=== PATIENT | male | born 1960 | race Caucasian/White ===

== ENCOUNTER 2016-03-03 23:12 | Inpatient (IN) | payer OTHER ==
[~2016-03-03] VITALS: Ht 167.6 cm; Wt 81.6 kg
[2016-03-03 23:16] VITALS: BP 88/53; PULSE 59; RESP 21; TEMP 97.7
[2016-03-03] MEDS ORDERED: SODIUM CHLOR 0.9% 250 ML INJ 250 ML IV ONE (23:30)
[2016-03-03] MEDS ORDERED: ONDANSETRON HCL 4 MG/2 ML VIAL ONE (23:38)
[2016-03-03 23:49] VITALS: BP 134/74; PULSE 84; RESP 20; O2SAT 98
[2016-03-04] VITALS (27 sets, daily range): BP systolic 89–158; BP diastolic 55–76; PULSE 52–118; RESP 14–19; TEMP 97.4–101; O2SAT 92–100
[2016-03-04 00:22] LABS: BICARBONATE 18.7 MEQ/L (21.0-32.0)
[2016-03-04] MEDS ORDERED: IOHEXOL 350 MG/ML 10 ML VIAL (for RAD DIAG) IV ONE (00:28)
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
[2016-03-04 00:47] LABS: POTASSIUM 2.9 MEQ/L (3.5-5.1)
--- NOTE | 2016-03-04 00:53 | RADRPT ---
EXAM DATE/TIME: 03/03/2016 23:49 [facility] COMPARISON: No previous studies available for comparison. INDICATIONS : Chest and abdominal pain MEDICAL HISTORY : Unknown SURGICAL HISTORY : Unknown ENCOUNTER: Initial ACUITY: 1 day PAIN SCORE: Non-responsive. LOCATION: Bilateral chest FINDINGS: A single view of the chest demonstrates the lungs to be symmetrically aerated without evidence of mas s, infiltrate or effusion. The cardiomediastinal contours are unremarkable. Osseous structures are intact. CONCLUSION: No acute disease. Ruben Levy MD on March 04, 2016 at 0:52 Board Certified Radiologist. This report was verified electronically.
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
[2016-03-04] MEDS ORDERED: POTASSIUM CHLORIDE 20 MEQ CONTROLLED RELEASE TAB PO ONE (01:00)
[2016-03-04] MEDS ORDERED: POTASSIUM CHLOR 20 MEQ PREMIX 100 ML IV ONE (01:00)
[2016-03-04] MEDS ORDERED: ETOMIDATE 20 MG/10 ML VIAL ONE (01:19)
[2016-03-04] MEDS ORDERED: SUCCINYLCHOLINE CHLORIDE 200 MG/10 ML VIAL ONE (01:19)
[2016-03-04 01:33] LABS: CALCIUM-PROTEIN CORRECTED 7.9 MG/DL (8.5-10.1)
[2016-03-04] MEDS ORDERED: ceFAZolin 2 GM PREMIX 50 ML ONE (01:54)
[2016-03-04 02:17] LABS: BLOOD GAS CARBOXYHEMOGLOBIN 1.5 % (0-4); BLOOD GAS HCO3 20 mmol/L (22-26); BLOOD GAS METHEMOGLOBIN 1.2 % (0-2); BLOOD GAS O2 HGB SATURATION 96 % (90-100); BLOOD GAS OXYGEN CONTENT 14.7 Vol % (12.0-20.0); BLOOD GAS PCO2 43 mmHg (38-42); BLOOD GAS PO2 163 mmHg (61-120); BLOOD GAS TOTAL HGB 10.6 G/DL (12.0-16.0); CRITICAL VALUE YES; STAT YES; TEMP CORR TO 98.6
[2016-03-04 02:45] LABS: AUTOMATED NEUTROPHIL # 7.3 TH/MM3 (1.8-7.7); BASOPHIL % 0.4 % (0.0-2.0); HEMATOCRIT 23.9 % (39.0-51.0); HEMO FLAGS DIFF FINAL; LYMPH % 4.8 % (9.0-44.0); LYMPHOCYTE # 0.4 TH/MM3 (1.0-4.8); MEAN CELL VOLUME 94.3 FL (80.0-100.0); MEAN CORPUSCULAR HEMOGLOBIN 32.9 PG (27.0-34.0); MEAN CORPUSCULAR HGB CONC 34.9 % (32.0-36.0); MONO % 7.3 % (0.0-8.0); NEUT % 87.5 % (16.0-70.0); PLATELET COUNT 129 TH/MM3 (150-450); RED BLOOD COUNT 2.53 MIL/MM3 (4.50-5.90); RED CELL DISTRIBUTION WIDTH 13.3 % (11.6-17.2); WHITE BLOOD COUNT 8.3 TH/MM3 (4.0-11.0)
[2016-03-04 02:49] LABS: BLOOD GAS BASE EXCESS -5.4 mmol/L (-2-2); BLOOD GAS CARBOXYHEMOGLOBIN 1.9 % (0-4); BLOOD GAS HCO3 20 mmol/L (22-26); BLOOD GAS METHEMOGLOBIN 1.3 % (0-2); BLOOD GAS O2 HGB SATURATION 96 % (90-100); BLOOD GAS OXYGEN CONTENT 11.9 Vol % (12.0-20.0); BLOOD GAS PCO2 39 mmHg (38-42); BLOOD GAS PO2 146 mmHg (61-120); BLOOD GAS TOTAL HGB 8.6 G/DL (12.0-16.0); CRITICAL VALUE NO; STAT YES; TEMP CORR TO 98.6
[2016-03-04] MEDS: SODIUM CHLOR 0.9% 1000 ML INJ 1,000 ML IV SCH ×2 (03:32→13:32)
[2016-03-04] MEDS ORDERED: MAGNESIUM OXIDE 400 MG TAB PO PRN ×2 (03:45→05:30)
[2016-03-04] MEDS ORDERED: MISCELLANEOUS NURSING INFORMATION XX SCH (03:45)
[2016-03-04] MEDS ORDERED: PROPOFOL 1000 MG/100 ML INJ 100 ML IV SCH ×3 (03:45→07:15)
[2016-03-04] MEDS ORDERED: ONDANSETRON HCL 4 MG/2 ML VIAL IV PRN (03:45)
[2016-03-04] MEDS ORDERED: SODIUM PHOSPHATE INJ 30 MMOL in SODIUM CHLOR 0.9% 250 ML INJ 240 ML IV PRN (03:45)
[2016-03-04] MEDS ORDERED: POTASSIUM CHLOR 40 MEQ PREMIX 100 ML IV PRN ×4 (03:45→05:30)
[2016-03-04] MEDS ORDERED: POTASSIUM PHOSPHATE MONOBASIC 500 MG TAB PO PRN ×2 (03:45→05:30)
[2016-03-04] MEDS ORDERED: POTASSIUM CL 40 MEQ/30 ML LIQ UDC PO/TUBE PRN ×4 (03:45→05:30)
[2016-03-04] MEDS ORDERED: SODIUM CHLORIDE 0.9% FLUSH 5 ML FLUSH IV FLUSH PRN (03:45)
[2016-03-04] MEDS ORDERED: POTASSIUM PHOSPHATE MONOBASIC 500 MG TAB PO/TUBE PRN ×2 (03:45→05:30)
[2016-03-04] MEDS ORDERED: POTASSIUM CHLOR 20 MEQ PREMIX 100 ML IV PRN ×4 (03:45→05:30)
[2016-03-04] MEDS ORDERED: POTASSIUM PHOSPHATE INJ 30 MMOL in SODIUM CHLOR 0.9% 250 ML INJ 250 ML IV PRN ×2 (03:45→05:30)
[2016-03-04] MEDS ORDERED: CHLORHEXIDINE GLUCONATE 2 % 1 PACK (2 CLOTHS) TOP PRN (03:45)
[2016-03-04] MEDS ORDERED: MAGNESIUM SULFATE INJ 4 GM in SODIUM CHLORIDE 0.9% INJ 92 ML IV PRN ×2 (03:45→05:30)
[2016-03-04] MEDS ORDERED: MAGNESIUM SULFATE INJ 2 GM in SODIUM CHLORIDE 0.9% INJ 96 ML IV PRN ×2 (03:45→05:30)
[2016-03-04] MEDS ORDERED: MIDAZOLAM HCL 2 MG/2 ML VIAL ONE ×2 (03:55)
[2016-03-04] MEDS: CHLORHEXIDINE GLUCONATE 2 % 1 PACK (2 CLOTHS) TOP SCH (04:00)
[2016-03-04] MEDS: fentaNYL DRIP 250 ML IV SCH ×3 (04:14→20:58)
[2016-03-04 04:15] LABS: BLOOD GAS BASE EXCESS -1.4 mmol/L (-2-2); BLOOD GAS CARBOXYHEMOGLOBIN 1.4 % (0-4); BLOOD GAS HCO3 24 mmol/L (22-26); BLOOD GAS O2 HGB SATURATION 94 % (90-100); BLOOD GAS OXYGEN CONTENT 13.1 Vol % (12.0-20.0); BLOOD GAS PCO2 45 mmHg (38-42); BLOOD GAS PO2 90 mmHg (61-120); BLOOD GAS TOTAL HGB 9.8 G/DL (12.0-16.0); CRITICAL VALUE NO; TEMP CORR TO 98.6
[2016-03-04 04:16] LABS: DRAW SITE ALINE
[2016-03-04 04:17] LABS: STAT YES
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
--- NOTE | 2016-03-04 05:39 | RADRPT ---
EXAM DATE/TIME: 03/04/2016 04:26 [facility] COMPARISON: CHEST SINGLE AP, March 03, 2016, 23:49. INDICATIONS : Post intubation. MEDICAL HISTORY : None. SURGICAL HISTORY : None. ENCOUNTER: Initial ACUITY: 1 day PAIN SCORE: Non-responsive. LOCATION: Bilateral chest FINDINGS: A single view of the chest demonstrates endotracheal tube with tip 2.5 cm above the maria guadalupe. Nasogastr ic tube with tip likely in stomach. Minimal patchy densities in the right lower lobe with slight elev ation right hemidiaphragm. The cardiomediastinal contours are unremarkable. Osseous structures are i ntact. CONCLUSION: 1. Minimal patchy density right lower lobe, likely atelectasis. 2. Endotracheal tube 2.5 cm above the maria guadalupe. Ruben Levy MD on March 04, 2016 at 5:36 Board Certified Radiologist. This report was verified electronically.
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
[2016-03-04] MEDS ORDERED: LORazepam 2 MG/ML VIAL ONE (06:53)
[2016-03-04] MEDS ORDERED: LORazepam 2 MG/ML VIAL IM PRN (07:15)
[2016-03-04] MEDS ORDERED: MIDAZOLAM HCL 5 MG/ML VIAL (1 ML) IV ONE (07:30)
[2016-03-04] MEDS: METOPROLOL TARTRATE 50 MG TAB PO SCH ×2 (07:30→21:41)
[2016-03-04] MEDS ORDERED: CHLORHEXIDINE 0.12% (ORAL KIT) 15 ML CUP MT SCH (08:00)
[2016-03-04] MEDS: CHLORHEXIDINE 0.12% (ORAL KIT) 15 ML CUP MT SCH ×2 (08:00→20:59)
[2016-03-04] MEDS: MIDAZOLAM 100 MG/ML INJ 100 ML IV SCH ×2 (08:04→20:58)
[2016-03-04] MEDS: SODIUM CHLORIDE 0.9% FLUSH 5 ML FLUSH IV FLUSH SCH ×2 (09:00→20:59)
[2016-03-04 09:59] LABS: HEMATOCRIT 27.9 % (39.0-51.0); MEAN CORPUSCULAR HEMOGLOBIN 30.8 PG (27.0-34.0); MEAN CORPUSCULAR HGB CONC 34.9 % (32.0-36.0); PLATELET COUNT 116 TH/MM3 (150-450); RED BLOOD COUNT 3.17 MIL/MM3 (4.50-5.90); RED CELL DISTRIBUTION WIDTH 16.3 % (11.6-17.2); REVIEW FLAG FINAL; WHITE BLOOD COUNT 3.8 TH/MM3 (4.0-11.0)
[2016-03-04 10:05] LABS: APTT (PATIENT) 26.8 SEC (24.3-30.1); INTERNATIONAL NORMALIZED RATIO 1.1 RATIO
[2016-03-04] MEDS: chlordiazePOXIDE 25 MG CAP PO SCH ×2 (10:13→15:47)
[2016-03-04] MEDS: FAMOTIDINE 20 MG/2 ML VIAL IV PUSH SCH ×2 (10:13→20:58)
[2016-03-04] MEDS: THIAMINE INJ 100 MG in SODIUM CHLORIDE 0.9% INJ 100 ML IV SCH (10:13)
[2016-03-04 10:20] LABS: BICARBONATE 28.1 MEQ/L (21.0-32.0); MAGNESIUM 2.2 MG/DL (1.5-2.5); POTASSIUM 3.4 MEQ/L (3.5-5.1)
[2016-03-04 10:35] LABS: CALCIUM-PROTEIN CORRECTED 7.9 MG/DL (8.5-10.1)
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
[2016-03-04] MEDS ORDERED: PHENYLEPH/NS 1000 MCG/10 ML SYR IV ONE (15:32)
[2016-03-04] MEDS ORDERED: NORMOSOL R INJ 4,000 ML IV ONE (15:32)
[2016-03-04] MEDS ORDERED: PROPOFOL 200 MG/20 ML AMP IV ONE (15:32)
[2016-03-04] MEDS ORDERED: ONDANSETRON HCL 4 MG/2 ML VIAL IV PUSH ONE (15:32)
[2016-03-04 17:48] LABS: BLOOD GAS BASE EXCESS 2.1 mmol/L (-2-2); BLOOD GAS CARBOXYHEMOGLOBIN 1.4 % (0-4); BLOOD GAS HCO3 26 mmol/L (22-26); BLOOD GAS METHEMOGLOBIN 0.8 % (0-2); BLOOD GAS O2 HGB SATURATION 96 % (90-100); BLOOD GAS OXYGEN CONTENT 14.2 Vol % (12.0-20.0); BLOOD GAS PCO2 35 mmHg (38-42); BLOOD GAS PO2 98 mmHg (61-120); BLOOD GAS TOTAL HGB 10.4 G/DL (12.0-16.0); CRITICAL VALUE NO; OXYGEN DEVICE VENTILATOR; TEMP CORR TO 98.6
[2016-03-04 17:49] LABS: DRAW SITE ART LINE; FIO2 40 %; STAT NO; VENT SETTINGS PRVC/AC/VT600/R14/P5
[2016-03-04] MEDS: LABETALOL HCL 100 MG/20 ML VIAL IV PUSH PRN (21:56)
--- NOTE | 2016-03-04 22:31 | EKG ---
Date Performed: 03/03/2016 Time Performed: 23:41:15 PTAGE: 56 years EKG: Sinus rhythm NORMAL ECG NO PREVIOUS TRACING DOCTOR: Martín Flores Interpretating Date/Time 03/04/2016 22:28:00
[2016-03-05] VITALS (14 sets, daily range): BP systolic 123–157; BP diastolic 64–88; PULSE 72–90; RESP 10–28; TEMP 78–100.2; O2SAT 93–96
[2016-03-05] MEDS: SODIUM CHLOR 0.9% 1000 ML INJ 1,000 ML IV SCH ×3 (01:37→20:26)
[2016-03-05] MEDS ORDERED: RESP: ALBUTEROL 2.5 MG/IPRATROPIUM 0.5 MG NEB (SCH) ONE (03:45)
[2016-03-05] MEDS: CHLORHEXIDINE GLUCONATE 2 % 1 PACK (2 CLOTHS) TOP SCH (04:00)
[2016-03-05] MEDS ORDERED: RESP: ALBUTEROL 2.5 MG/IPRATROPIUM 0.5 MG NEB (PRN) NEB (04:00)
--- NOTE | 2016-03-05 05:02 | RADRPT ---
EXAM DATE/TIME: 03/05/2016 03:58 [facility] COMPARISON: CHEST SINGLE AP, March 04, 2016, 4:26. INDICATIONS : Shortness of breath, possible pulmonary disease. MEDICAL HISTORY : None. SURGICAL HISTORY : None. ENCOUNTER: Subsequent ACUITY: 3 days PAIN SCORE: Non-responsive. LOCATION: Bilateral chest FINDINGS: A single view of the chest demonstrates increasing elevation right hemidiaphragm. Right basilar densi ty. Left lung clear. Nasogastric tube with tip in stomach. The cardiomediastinal contours are unremar kable. Osseous structures are intact. CONCLUSION: 1. Increasing atelectasis with increasing elevation right hemidiaphragm and volume loss. 2. Left lung remains clear. Ruben Levy MD on March 05, 2016 at 4:56 Board Certified Radiologist. This report was verified electronically.
[2016-03-05 05:14] LABS: BLOOD GAS BASE EXCESS 0.4 mmol/L (-2-2); BLOOD GAS CARBOXYHEMOGLOBIN 1.5 % (0-4); BLOOD GAS HCO3 25 mmol/L (22-26); BLOOD GAS METHEMOGLOBIN 0.8 % (0-2); BLOOD GAS O2 HGB SATURATION 91 % (90-100); BLOOD GAS OXYGEN CONTENT 13.3 Vol % (12.0-20.0); BLOOD GAS PCO2 46 mmHg (38-42); BLOOD GAS PO2 64 mmHg (61-120); BLOOD GAS TOTAL HGB 10.5 G/DL (12.0-16.0); CRITICAL VALUE NO; DRAW SITE ART LINE; FIO2 50 %; LITER FLOW 6 L/M; OXYGEN DEVICE Venti Mask; TEMP CORR TO 98.6
[2016-03-05 05:15] LABS: STAT NO
[2016-03-05 06:03] LABS: AUTOMATED NEUTROPHIL # 7.9 TH/MM3 (1.8-7.7); BASOPHIL # 0.1 TH/MM3 (0-0.2); BASOPHIL % 0.5 % (0.0-2.0); EOSINOPHIL # 0.1 TH/MM3 (0-0.4); EOSINOPHIL % 0.6 % (0.0-4.0); HEMATOCRIT 31.1 % (39.0-51.0); HEMO FLAGS DIFF FINAL; LYMPH % 15.8 % (9.0-44.0); LYMPHOCYTE # 1.7 TH/MM3 (1.0-4.8); MEAN CELL VOLUME 89.7 FL (80.0-100.0); MEAN CORPUSCULAR HGB CONC 34.6 % (32.0-36.0); MONO % 10.7 % (0.0-8.0); NEUT % 72.4 % (16.0-70.0); PLATELET COUNT 150 TH/MM3 (150-450); RED BLOOD COUNT 3.47 MIL/MM3 (4.50-5.90); RED CELL DISTRIBUTION WIDTH 16.7 % (11.6-17.2)
[2016-03-05 06:04] LABS: PROTHROMBIN TIME - PATIENT 11.4 SEC (9.8-11.6)
[2016-03-05 06:20] LABS: MAGNESIUM 2.3 MG/DL (1.5-2.5); POTASSIUM 3.8 MEQ/L (3.5-5.1)
[2016-03-05 06:35] LABS: CALCIUM-PROTEIN CORRECTED 8.2 MG/DL (8.5-10.1)
[2016-03-05] MEDS: CHLORHEXIDINE 0.12% (ORAL KIT) 15 ML CUP MT SCH ×2 (08:00→20:21)
[2016-03-05] MEDS: chlordiazePOXIDE 25 MG CAP PO SCH ×4 (08:00→23:22)
[2016-03-05] MEDS: DOCUSATE SODIUM 100 MG CAP PO SCH ×2 (08:06→20:19)
[2016-03-05] MEDS: FAMOTIDINE 20 MG/2 ML VIAL IV PUSH SCH ×2 (08:06→20:20)
[2016-03-05] MEDS: SODIUM CHLORIDE 0.9% FLUSH 5 ML FLUSH IV FLUSH SCH ×2 (08:06→20:20)
[2016-03-05] MEDS: METOPROLOL TARTRATE 50 MG TAB PO SCH ×2 (08:06→20:19)
[2016-03-05] MEDS: THIAMINE INJ 100 MG in SODIUM CHLORIDE 0.9% INJ 100 ML IV SCH (08:06)
[2016-03-05] MEDS: RESP: ALBUTEROL 2.5 MG/IPRATROPIUM 0.5 MG NEB (SCH) NEB ×3 (09:44→20:33)
[2016-03-05] MEDS: SODIUM PHOSPHATE INJ 30 MMOL in SODIUM CHLOR 0.9% 250 ML INJ 240 ML IV PRN ×2 (09:45→22:13)
[2016-03-05] MEDS: ENOXAPARIN SODIUM 40 MG/0.4 ML SYRINGE SQ SCH (10:03)
[2016-03-05] MEDS: HYDROmorphone HCL PF 1 MG/ML VIAL IV PUSH PRN (13:53)
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
[2016-03-06] VITALS (19 sets, daily range): BP systolic 109–171; BP diastolic 52–87; PULSE 61–89; RESP 12–28; TEMP 97.9–99.2; O2SAT 93–100
[2016-03-06] MEDS: CHLORHEXIDINE GLUCONATE 2 % 1 PACK (2 CLOTHS) TOP SCH (03:05)
[2016-03-06] MEDS: RESP: ALBUTEROL 2.5 MG/IPRATROPIUM 0.5 MG NEB (SCH) NEB ×4 (04:08→21:18)
[2016-03-06] MEDS: SODIUM CHLOR 0.9% 1000 ML INJ 1,000 ML IV SCH ×2 (05:32→08:45)
[2016-03-06 05:45] LABS: HEMATOCRIT 28.5 % (39.0-51.0); MEAN CELL VOLUME 90.1 FL (80.0-100.0); MEAN CORPUSCULAR HEMOGLOBIN 30.8 PG (27.0-34.0); MEAN CORPUSCULAR HGB CONC 34.2 % (32.0-36.0); PLATELET COUNT 169 TH/MM3 (150-450); RED BLOOD COUNT 3.17 MIL/MM3 (4.50-5.90); REVIEW FLAG FINAL
[2016-03-06 06:11] LABS: BICARBONATE 26.8 MEQ/L (21.0-32.0); MAGNESIUM 2.1 MG/DL (1.5-2.5); POTASSIUM 3.7 MEQ/L (3.5-5.1)
--- NOTE | 2016-03-06 06:33 | RADRPT ---
EXAM DATE/TIME: 03/06/2016 05:22 [facility] COMPARISON: CT ABDOMEN & PELVIS W CONTRAST, March 04, 2016, 0:10. CHEST SINGLE AP, March 05, 2016, 3:58. INDICATIONS : Shortness of breath. MEDICAL HISTORY : None. SURGICAL HISTORY : None. ENCOUNTER: Subsequent ACUITY: 4 - 6 days PAIN SCORE: Non-responsive. LOCATION: Bilateral chest FINDINGS: The cardiac silhouette is enlarged in transverse diameter. There is right lower lobe atelectasis vers us pneumonia. The findings have worsened when compared with the prior examination. The left lung is f ree of acute parenchymal opacity. CONCLUSION: 1. Cardiomegaly. 2. Right lower lobe atelectasis versus pneumonia. The findings have worsened when compared with the p rior examination. Wu Felix MD on March 06, 2016 at 6:30 Board Certified Radiologist. This report was verified electronically.
[2016-03-06] MEDS: SODIUM CHLORIDE 0.9% FLUSH 5 ML FLUSH IV FLUSH SCH ×2 (07:32→20:20)
[2016-03-06] MEDS: chlordiazePOXIDE 25 MG CAP PO SCH ×2 (08:44→16:24)
[2016-03-06] MEDS: CHLORHEXIDINE 0.12% (ORAL KIT) 15 ML CUP MT SCH ×2 (08:44→20:20)
[2016-03-06] MEDS: DOCUSATE SODIUM 100 MG CAP PO SCH ×2 (08:44→20:20)
[2016-03-06] MEDS: METOPROLOL TARTRATE 50 MG TAB PO SCH ×2 (08:44→21:00)
[2016-03-06] MEDS: ENOXAPARIN SODIUM 40 MG/0.4 ML SYRINGE SQ SCH (08:45)
[2016-03-06] MEDS: FAMOTIDINE 20 MG/2 ML VIAL IV PUSH SCH ×2 (08:45→20:20)
[2016-03-06] MEDS: THIAMINE INJ 100 MG in SODIUM CHLORIDE 0.9% INJ 100 ML IV SCH (08:54)
[2016-03-06] MEDS ORDERED: PNEUMOCOCCAL POLYVALENT INJ 25 MCG/0.5 ML SYR IM ONE (09:00)
[2016-03-06] MEDS ORDERED: HAEMOPH B POLYSACCH CONJ VACCINE 0.5 ML VIAL IM ONE (09:00)
[2016-03-06] MEDS ORDERED: MENINGOCOCCAL CONJUGATE VACCINE 0.5 ML VIAL IM ONE (09:00)
[2016-03-06] MEDS ORDERED: LACTATED RINGER'S 1000 ML INJ 2,000 ML IV ONE (09:29)
[2016-03-06] MEDS ORDERED: ePHEDrine/NS 50 MG/5 ML SYR IV ONE (09:29)
[2016-03-06] MEDS ORDERED: PHENYLEPH/NS 1000 MCG/10 ML SYR IV ONE (09:29)
[2016-03-06] MEDS ORDERED: PROPOFOL 200 MG/20 ML AMP IV ONE (09:29)
[2016-03-06] MEDS ORDERED: FUROSEMIDE 40 MG/4 ML VIAL IV PUSH ONE (10:00)
[2016-03-06] MEDS ORDERED: EPINEPHrine HCL (1:10,000) 1 MG/10 ML SYRINGE ONE (10:35)
[2016-03-06] MEDS ORDERED: LIDOCAINE HCL 2% 100 MG/5 ML SYRINGE ONE (10:35)
[2016-03-06] MEDS ORDERED: ATROPINE SULFATE 1 MG/10 ML SYRINGE ONE (10:35)
--- NOTE | 2016-03-06 11:15 | RADRPT ---
EXAM DATE/TIME: 03/06/2016 10:48 [facility] COMPARISON: CHEST SINGLE AP, March 05, 2016, 3:58. CHEST SINGLE AP, March 04, 2016, 4:26. CHEST SINGLE AP, March 06, 2016, 5:22. INDICATIONS : Short of breath. RADIATION DOSE: 6.36 CTDIvol (mGy) MEDICAL HISTORY : None SURGICAL HISTORY : Splenectomy. ENCOUNTER: Initial ACUITY: 1 day PAIN SCALE: 4/10 LOCATION: chest TECHNIQUE: Volumetric scanning of the chest was performed. Using automated exposure control and adjustment of t he mA and/or kV according to patient size, radiation dose was kept as low as reasonably achievable to obtain optimal diagnostic quality images. FINDINGS: LUNGS: There is significant volume loss within the right hemithorax with elevation of the right hemidiaphrag m and complete collapse of the right upper, middle and lower lung. There is air identified within the trachea and bronchi. No obstructing lesion is identified. There is also a small right-sided pleural effusion noted. The left lung demonstrate a small pleural effusion and adjacent compressive atelectas is of the left lower lung. Patchy airspace consolidation is seen within the anterior aspect of the le ft upper lung and within the left apex. PLEURAE: Bilateral small pleural effusions. MEDIASTINUM: The heart and great vessels demonstrate no acute abnormality. There is no mediastinal or hilar lymph adenopathy. Gastric tube is identified within the stomach. AXILLAE: Within normal limits. No lymphadenopathy. MUSCULOSKELETAL: Within normal limits for patient age. MISCELLANEOUS: The patient is status post splenectomy with a large heterogeneous fluid collection identified within the left upper quadrant. There is a focal area of increased fluid density within the lower fluid chandler ection immediately contiguous with the adjacent splenic vein. This is concerning for acute hemorrhage . CONCLUSION: 1. Fluid collection identified within the splenic with focal area of high density fluid immediately c ontiguous with the splenic vein concerning for acute hemorrhage. The referring physician is being con tacted to relay these results. 2. Significant volume loss identified within the right hemithorax with complete collapse of the right upper, middle and lower lobes. 3. Patchy areas of airspace consolidation within the left lung apex and anterior aspect of the left l frankie concerning for infection. Small bilateral pleural effusions. Maribeth Anders MD on March 06, 2016 at 11:02 Board Certified Radiologist. This report was verified electronically.
[2016-03-06 12:06] LABS: HEMATOCRIT 30.7 % (39.0-51.0); REVIEW FLAG FINAL
[2016-03-06] MEDS: SODIUM PHOSPHATE INJ 30 MMOL in SODIUM CHLOR 0.9% 250 ML INJ 240 ML IV PRN (12:07)
[2016-03-06] MEDS: LABETALOL HCL 100 MG/20 ML VIAL IV PUSH PRN (12:18)
[2016-03-06 13:27] LABS: BLOOD GAS BASE EXCESS 2.7 mmol/L (-2-2); BLOOD GAS CARBOXYHEMOGLOBIN 1.9 % (0-4); BLOOD GAS HCO3 27 mmol/L (22-26); BLOOD GAS METHEMOGLOBIN 1.1 % (0-2); BLOOD GAS O2 HGB SATURATION 97 % (90-100); BLOOD GAS OXYGEN CONTENT 20.7 Vol % (12.0-20.0); BLOOD GAS PCO2 43 mmHg (38-42); BLOOD GAS PO2 177 mmHg (61-120); CRITICAL VALUE NO; OXYGEN DEVICE OR; STAT YES; TEMP CORR TO 98.6
[2016-03-06] MEDS ORDERED: PROPOFOL 1000 MG/100 ML INJ 100 ML ONE (13:57)
[2016-03-06] MEDS ORDERED: fentaNYL CITRATE 250 MCG/5 ML AMP ONE (14:07)
[2016-03-06] MEDS ORDERED: *morphine SULFATE 8 MG/ML PERIprocedure ONLY ONE ×2 (14:17→14:24)
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
--- NOTE | 2016-03-06 16:19 | RADRPT ---
EXAM DATE/TIME: 03/06/2016 15:16 [facility] COMPARISON: CT THORAX W/O CONTRAST, March 06, 2016, 10:48. INDICATIONS : Post Intubation/Bronch. MEDICAL HISTORY : None. SURGICAL HISTORY : Splenectomy. ENCOUNTER: Initial ACUITY: 1 day PAIN SCORE: Non-responsive. LOCATION: Bilateral chest FINDINGS: Single portable view of the thorax is performed. There has been interval intubation with improved aer ation of the right hemithorax. There is persistent atelectasis seen within the right lower lung and a djacent to the right middle lobe. The left hemithorax is clear. NG tube identified with the proximal port below level of the diaphragm. There is a new left-sided jacky inage catheter rejecting over the splenic fossa. CONCLUSION: Status post drainage of a fluid collection within the splenic fossa. Intubation with improved aeration of the right hemithorax. Maribeth Anders MD on March 06, 2016 at 16:16 Board Certified Radiologist. This report was verified electronically.
[2016-03-06] MEDS: PROPOFOL 1000 MG/100 ML INJ 100 ML IV SCH (16:24)
[2016-03-06] MEDS: PIPERACIL-TAZO 4.5 GM PREMIX 100 ML IV SCH (16:24)
[2016-03-07] VITALS (19 sets, daily range): BP systolic 124–164; BP diastolic 63–90; PULSE 74–83; RESP 12–26; TEMP 98.4–99.6; O2SAT 92–100
[2016-03-07] MEDS: PIPERACIL-TAZO 4.5 GM PREMIX 100 ML IV SCH ×2 (00:20→08:17)
[2016-03-07] MEDS: PROPOFOL 1000 MG/100 ML INJ 100 ML IV SCH ×2 (02:15→08:17)
[2016-03-07 04:24] LABS: HEMATOCRIT 29.4 % (39.0-51.0); MEAN CELL VOLUME 89.7 FL (80.0-100.0); MEAN CORPUSCULAR HEMOGLOBIN 30.8 PG (27.0-34.0); MEAN CORPUSCULAR HGB CONC 34.3 % (32.0-36.0); PLATELET COUNT 219 TH/MM3 (150-450); RED BLOOD COUNT 3.28 MIL/MM3 (4.50-5.90); REVIEW FLAG FINAL; WHITE BLOOD COUNT 9.5 TH/MM3 (4.0-11.0)
[2016-03-07] MEDS: RESP: ALBUTEROL 2.5 MG/IPRATROPIUM 0.5 MG NEB (SCH) NEB ×4 (04:24→21:16)
[2016-03-07 04:53] LABS: BICARBONATE 30.2 MEQ/L (21.0-32.0); MAGNESIUM 2.1 MG/DL (1.5-2.5); POTASSIUM 3.5 MEQ/L (3.5-5.1)
[2016-03-07 05:04] LABS: BLOOD GAS BASE EXCESS -0.1 mmol/L (-2-2); BLOOD GAS CARBOXYHEMOGLOBIN 1.2 % (0-4); BLOOD GAS HCO3 24 mmol/L (22-26); BLOOD GAS METHEMOGLOBIN 0.9 % (0-2); BLOOD GAS O2 HGB SATURATION 97 % (90-100); BLOOD GAS OXYGEN CONTENT 13.5 Vol % (12.0-20.0); BLOOD GAS PCO2 39 mmHg (38-42); BLOOD GAS PO2 133 mmHg (61-120); BLOOD GAS TOTAL HGB 9.7 G/DL (12.0-16.0); CRITICAL VALUE NO; OXYGEN DEVICE VENTILATOR; TEMP CORR TO 98.6
[2016-03-07 05:06] LABS: DRAW SITE ART LINE; FIO2 40 %; STAT NO; VENT SETTINGS A/C12/600/PEEP10
[2016-03-07] MEDS: CHLORHEXIDINE GLUCONATE 2 % 1 PACK (2 CLOTHS) TOP SCH (05:45)
--- NOTE | 2016-03-07 06:54 | RADRPT ---
EXAM DATE/TIME: 03/07/2016 05:04 [facility] COMPARISON: CHEST SINGLE AP, March 06, 2016, 15:16. INDICATIONS : Please evaluate after respiratory failure. MEDICAL HISTORY : None. SURGICAL HISTORY : Splenectomy. ENCOUNTER: Subsequent ACUITY: 3 days PAIN SCORE: Non-responsive. LOCATION: Bilateral chest FINDINGS: The cardiac silhouette is enlarged in transverse diameter. There is right lower lobe atelectasis vers us pneumonia. Support lines and tubes are in satisfactory position. The left lung is free of acute pa renchymal opacity. CONCLUSION: 1. Cardiomegaly. 2. Right lower lobe atelectasis versus pneumonia. The findings are similar to the prior exam. Wu Felix MD on March 07, 2016 at 6:52 Board Certified Radiologist. This report was verified electronically.
[2016-03-07] MEDS: SODIUM CHLORIDE 0.9% FLUSH 5 ML FLUSH IV FLUSH SCH ×2 (06:57→20:29)
[2016-03-07] MEDS: DOCUSATE SODIUM 100 MG CAP PO SCH ×2 (08:16→20:29)
[2016-03-07] MEDS: METOPROLOL TARTRATE 50 MG TAB PO SCH ×2 (08:16→20:29)
[2016-03-07] MEDS: FAMOTIDINE 20 MG/2 ML VIAL IV PUSH SCH ×2 (08:16→20:29)
[2016-03-07] MEDS: chlordiazePOXIDE 25 MG CAP PO SCH ×3 (08:16→16:19)
[2016-03-07] MEDS: CHLORHEXIDINE 0.12% (ORAL KIT) 15 ML CUP MT SCH ×2 (08:17→20:29)
[2016-03-07] MEDS: THIAMINE INJ 100 MG in SODIUM CHLORIDE 0.9% INJ 100 ML IV SCH (08:17)
[2016-03-07] MEDS: ENOXAPARIN SODIUM 40 MG/0.4 ML SYRINGE SQ SCH (09:06)
[2016-03-07] MEDS: HYDROmorphone HCL PF 1 MG/ML VIAL IV PUSH PRN ×2 (09:41→22:50)
[2016-03-07] MEDS: LABETALOL HCL 100 MG/20 ML VIAL IV PUSH PRN ×2 (14:40→20:30)
[2016-03-07] MEDS: ACETAMINOPHEN 325 MG TAB PO PRN ×2 (14:40→20:30)
[2016-03-07] MEDS: SODIUM CHLOR 0.9% 1000 ML INJ 1,000 ML IV SCH (15:32)
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
[2016-03-08] VITALS (12 sets, daily range): BP systolic 115–163; BP diastolic 59–88; PULSE 64–80; RESP 12–21; TEMP 96.8–100.1; O2SAT 92–97
[2016-03-08] MEDS: chlordiazePOXIDE 25 MG CAP PO SCH ×2 (00:09→09:02)
[2016-03-08] MEDS: RESP: ALBUTEROL 2.5 MG/IPRATROPIUM 0.5 MG NEB (SCH) NEB ×4 (03:07→21:04)
[2016-03-08 03:53] LABS: HEMATOCRIT 27.7 % (39.0-51.0); MEAN CELL VOLUME 90.4 FL (80.0-100.0); MEAN CORPUSCULAR HEMOGLOBIN 30.7 PG (27.0-34.0); PLATELET COUNT 251 TH/MM3 (150-450); RED BLOOD COUNT 3.06 MIL/MM3 (4.50-5.90); RED CELL DISTRIBUTION WIDTH 15.3 % (11.6-17.2); REVIEW FLAG FINAL; WHITE BLOOD COUNT 8.4 TH/MM3 (4.0-11.0)
[2016-03-08 04:09] LABS: BICARBONATE 34.3 MEQ/L (21.0-32.0); MAGNESIUM 2.2 MG/DL (1.5-2.5); POTASSIUM 3.7 MEQ/L (3.5-5.1)
[2016-03-08] MEDS: CHLORHEXIDINE GLUCONATE 2 % 1 PACK (2 CLOTHS) TOP SCH (04:57)
--- NOTE | 2016-03-08 05:26 | MP ---
cc: FOX DAS MD DATE OF SURGERY: 03/06/2016 PREOPERATIVE DIAGNOSIS Status post splenectomy, left upper quadrant collection and contained hemorrhage, as well as consolidation of the right lung with secretions. POSTOPERATIVE DIAGNOSIS: Status post splenectomy, left upper quadrant collection and contained hemorrhage, as well as consolidation of the right lung with secretions. PROCEDURE Exploratory laparotomy, evacuation of left upper quadrant collection, lavage and drainage of the subphrenic space, and bronchoscopy with evacuation of secretions from the right lung. SURGEON Dr. Das ANESTHESIA General. ESTIMATED BLOOD LOSS: 30 cc DESCRIPTION OF PROCEDURE: The patient was prepped and draped in usual fashion. The hari were removed. Stitches are removed from the mid abdominal incision and abdomen entered. The abdomen is explored in quadrants. Small and large bowel were run. No abnormalities were found. The liver appears to be fine. On the left upper quadrant, in the splenic bed, there is a huge collection of blood measuring about 15 cm in diameter consisting of liquid old blood and clots. There is no active bleeding. This is evacuated with suction and scooping it out. Then the abdomen including the left upper quadrant is irrigated with 3 liters of warm saline. When everything is cleaned, the area was packed and then 2-0 Monocryl was placed, for some small oozing areas on the omentum. Once this was completed, a 10 flat MARISA is placed in the left upper quadrant which is now completely dry. The abdomen was closed with #1 PDS loop and hari. The patient of the procedure well. Fox KUNZ/FRANCIS /3:10 PM /4:22 AM
[2016-03-08] MEDS: CHLORHEXIDINE 0.12% (ORAL KIT) 15 ML CUP MT SCH (08:00)
[2016-03-08] MEDS: SODIUM CHLORIDE 0.9% FLUSH 5 ML FLUSH IV FLUSH SCH ×2 (08:03→21:00)
[2016-03-08] MEDS: ENOXAPARIN SODIUM 40 MG/0.4 ML SYRINGE SQ SCH (09:02)
[2016-03-08] MEDS: DOCUSATE SODIUM 100 MG CAP PO SCH ×2 (09:02→22:40)
[2016-03-08] MEDS: METOPROLOL TARTRATE 50 MG TAB PO SCH ×2 (09:02→22:40)
[2016-03-08] MEDS: FAMOTIDINE 20 MG/2 ML VIAL IV PUSH SCH (09:12)
[2016-03-08] MEDS: THIAMINE INJ 100 MG in SODIUM CHLORIDE 0.9% INJ 100 ML IV SCH (09:13)
[2016-03-08] MEDS ORDERED: LACTULOSE SYRUP 20 GM/30 ML CUP PO ONE (10:00)
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
[2016-03-08] MEDS: ENALAPRILAT 1.25 MG/ML VIAL IV PRN (13:53)
[2016-03-08] MEDS ORDERED: hydrALAZINE HCL 20 MG/ML VIAL IV PRN (14:00)
[2016-03-08] MEDS: SODIUM CHLOR 0.9% 1000 ML INJ 1,000 ML IV SCH (15:56)
[2016-03-08] MEDS ORDERED: chlordiazePOXIDE 25 MG CAP PO SCH (17:00)
[2016-03-09] VITALS (11 sets, daily range): BP systolic 136–176; BP diastolic 69–94; PULSE 55–73; RESP 16–24; TEMP 96.8–99.5; O2SAT 91–96
[2016-03-09] MEDS: RESP: ALBUTEROL 2.5 MG/IPRATROPIUM 0.5 MG NEB (SCH) NEB ×2 (03:28→08:11)
--- NOTE | 2016-03-09 06:54 | RADRPT ---
EXAM DATE/TIME: 03/09/2016 06:00 [facility] COMPARISON: CHEST SINGLE AP, March 07, 2016, 5:04. INDICATIONS : Short of breath, coughing MEDICAL HISTORY : None. SURGICAL HISTORY : Splenectomy. ENCOUNTER: Subsequent ACUITY: 1 week PAIN SCORE: 0/10 LOCATION: Bilateral chest FINDINGS: There has been interval extubation and removal of nasogastric tube. There is persistent elevation the right diaphragm or subpulmonic effusion and infiltrate and effusion at the contralateral left base w hich appears slightly worse than on prior. CONCLUSION: Interval extubation. Slight worsening in aeration. Sonu Neal MD on March 09, 2016 at 6:51 Board Certified Radiologist. This report was verified electronically.
[2016-03-09] MEDS: THIAMINE INJ 100 MG in SODIUM CHLORIDE 0.9% INJ 100 ML IV SCH (10:25)
[2016-03-09] MEDS: METOPROLOL TARTRATE 50 MG TAB PO SCH ×2 (10:25→19:49)
[2016-03-09] MEDS: DOCUSATE SODIUM 100 MG CAP PO SCH ×2 (10:25→19:49)
[2016-03-09] MEDS: ENOXAPARIN SODIUM 40 MG/0.4 ML SYRINGE SQ SCH (10:25)
[2016-03-09] MEDS: SODIUM CHLORIDE 0.9% FLUSH 5 ML FLUSH IV FLUSH SCH ×2 (10:26→19:49)
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
[2016-03-09] MEDS: SODIUM CHLOR 0.9% 1000 ML INJ 1,000 ML IV SCH (15:00)
[2016-03-09] MEDS: MAGNESIUM HYDROXIDE SUSP 30 ML CUP PO SCH (19:49)
[2016-03-09] MEDS: FAMOTIDINE 20 MG TAB PO SCH (19:49)
[2016-03-10] VITALS (10 sets, daily range): BP systolic 172–190; BP diastolic 88–100; PULSE 65–77; RESP 17–26; TEMP 97.3–99.6; O2SAT 93–96
[2016-03-10] MEDS: ENALAPRILAT 1.25 MG/ML VIAL IV PRN (04:47)
[2016-03-10] MEDS: FAMOTIDINE 20 MG TAB PO SCH ×2 (07:48→19:29)
[2016-03-10] MEDS: METOPROLOL TARTRATE 50 MG TAB PO SCH ×2 (07:48→19:30)
[2016-03-10] MEDS: SODIUM CHLORIDE 0.9% FLUSH 5 ML FLUSH IV FLUSH SCH ×2 (07:48→19:30)
[2016-03-10] MEDS: DOCUSATE SODIUM 100 MG CAP PO SCH ×2 (07:48→19:29)
[2016-03-10] MEDS ORDERED: cloNIDine HCL 0.1 MG TAB PO PRN (08:30)
[2016-03-10] MEDS: ENOXAPARIN SODIUM 40 MG/0.4 ML SYRINGE SQ SCH (08:55)
[2016-03-10] MEDS: LISINOPRIL 20 MG TAB PO SCH (08:55)
[2016-03-10] MEDS: THIAMINE INJ 100 MG in SODIUM CHLORIDE 0.9% INJ 100 ML IV SCH (08:56)
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
[2016-03-10] MEDS: SODIUM CHLOR 0.9% 1000 ML INJ 1,000 ML IV SCH (14:46)
[2016-03-10] MEDS: MAGNESIUM HYDROXIDE SUSP 30 ML CUP PO SCH (19:29)
[2016-03-10] MEDS: ACETAMINOPHEN 325 MG TAB PO PRN (23:32)
[2016-03-11] VITALS (9 sets, daily range): BP systolic 149–180; BP diastolic 80–100; PULSE 66–86; RESP 18–22; TEMP 97.4–101.2; O2SAT 93–96
[2016-03-11] MEDS: FAMOTIDINE 20 MG TAB PO SCH ×2 (09:33→21:16)
[2016-03-11] MEDS: METOPROLOL TARTRATE 50 MG TAB PO SCH ×2 (09:33→21:16)
[2016-03-11] MEDS: DOCUSATE SODIUM 100 MG CAP PO SCH ×2 (09:33→21:00)
[2016-03-11] MEDS: THIAMINE INJ 100 MG in SODIUM CHLORIDE 0.9% INJ 100 ML IV SCH (09:33)
[2016-03-11] MEDS: SODIUM CHLORIDE 0.9% FLUSH 5 ML FLUSH IV FLUSH SCH ×2 (09:34→21:00)
[2016-03-11] MEDS: ENOXAPARIN SODIUM 40 MG/0.4 ML SYRINGE SQ SCH (09:34)
[2016-03-11] MEDS: LISINOPRIL 20 MG TAB PO SCH (09:34)
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
[2016-03-11] MEDS: SODIUM CHLOR 0.9% 1000 ML INJ 1,000 ML IV SCH (15:37)
[2016-03-11] MEDS: MAGNESIUM HYDROXIDE SUSP 30 ML CUP PO SCH (21:00)
[2016-03-11] MEDS: oxyCODONE/ACETAMINOPHEN 5 MG/325 MG TAB PO PRN (21:17)
[2016-03-12] VITALS (7 sets, daily range): BP systolic 149–172; BP diastolic 84–99; PULSE 71–99; RESP 16–21; TEMP 97.4–99.3; O2SAT 92–95
[2016-03-12] MEDS: SODIUM CHLORIDE 0.9% FLUSH 5 ML FLUSH IV FLUSH SCH ×2 (09:00→20:31)
[2016-03-12] MEDS: METOPROLOL TARTRATE 50 MG TAB PO SCH ×2 (09:13→20:28)
[2016-03-12] MEDS: DOCUSATE SODIUM 100 MG CAP PO SCH ×2 (09:14→20:28)
[2016-03-12] MEDS: THIAMINE INJ 100 MG in SODIUM CHLORIDE 0.9% INJ 100 ML IV SCH (09:14)
[2016-03-12] MEDS: FAMOTIDINE 20 MG TAB PO SCH ×2 (09:14→20:28)
[2016-03-12] MEDS: ENOXAPARIN SODIUM 40 MG/0.4 ML SYRINGE SQ SCH (09:20)
[2016-03-12] MEDS: LISINOPRIL 20 MG TAB PO SCH (09:20)
--- NOTE | 2016-03-12 13:04 | HHI.PR ---
Subjective Subjective Notes Complains of frequent headaches, otherwise pain controlled Patient reports he has been OOB with minimal assist Objective Vitals/I&O Vital Signs Date Time Temp Pulse Resp B/P Pulse Ox O2 Delivery O2 Flow Rate FiO2 03/12/16 11:04 93 21 03/12/16 08:00 99.3 88 20 158/99 03/11/16 18:23 Nasal Cannula 03/11/16 09:25 1.00 Labs Laboratory Tests Test 03/06/16 03/08/16 11:57 03:45 Blood Type A POSITIVE Antibody Screen NEGATIVE Crossmatch Leukocyte-Reduced Red Blood Cells Blood Bank Comment White Blood Count 8.4 TH/MM3 Red Blood Count 3.06 MIL/MM3 Hemoglobin 9.4 GM/DL Hematocrit 27.7 % Mean Corpuscular Volume 90.4 FL Mean Corpuscular Hemoglobin 30.7 PG Mean Corpuscular Hemoglobin 34.0 % Concent Red Cell Distribution Width 15.3 % Platelet Count 251 TH/MM3 Mean Platelet Volume 8.3 FL Sodium Level 140 MEQ/L Potassium Level 3.7 MEQ/L Chloride Level 102 MEQ/L Carbon Dioxide Level 34.3 MEQ/L Anion Gap 4 MEQ/L Blood Urea Nitrogen 8 MG/DL Creatinine 0.52 MG/DL Estimat Glomerular Filtration 163 ML/MIN Rate Random Glucose 78 MG/DL Calcium Level 7.9 MG/DL Magnesium Level 2.2 MG/DL Radiology Last Impressions Chest X-Ray 03/09/16 0600 Signed Impressions: Service Date/Time: Wednesday, March 09, 2016 06:00 - CONCLUSION: Interval extubation. Slight worsening in aeration. Sonu Neal MD Chest CT 03/06/16 0000 Signed Impressions: Service Date/Time: Sunday, March 06, 2016 10:48 - CONCLUSION: 1. Fluid collection identified within the splenic with focal area of high density fluid immediately contiguous with the splenic vein concerning for acute hemorrhage. The referring physician is being contacted to relay these results. 2. Significant volume loss identified within the right hemithorax with complete collapse of the right upper, middle and lower lobes. 3. Patchy areas of airspace consolidation within the left lung apex and anterior aspect of the left lung concerning for infection. Small bilateral pleural effusions. Maribeth Anders MD Abdomen/Pelvis CT 03/04/16 0000 Signed Impressions: Service Date/Time: Friday, March 04, 2016 00:10 - CONCLUSION: 1. Shattered spleen with extravasation of contrast suggesting active hemorrhage. 2. Hemoperitoneum. Ruben Levy MD Narrative Exam GENERAL: 56 year old well-nourished, well developed male lying in bed. SKIN: Warm and dry. CARDIOVASCULAR: Regular rate and rhythm. RESPIRATORY: No accessory muscle use. Lungs clear and diminished to auscultation. Breath sounds equal bilaterally. GASTROINTESTINAL: Abdomen soft, non-tender, nondistended. + BS. Midline abdominal incision with hari C/D/I. Mild erythema noted. MUSCULOSKELETAL: Extremities without cyanosis, or edema. No obvious deformities. NEUROLOGICAL: Awake and alert. Normal speech. A/P Problem List: (1) Splenic rupture (2) Acute respiratory failure (3) Hypovolemic shock (4) Alcoholism Assessment and Plan INJURIES: Extensive laceration of the spleen with hemorrhage PROCEDURES: 03/04: Ex-lap; splenectomy 03/06: Ex - lap with cauterization of splenic bed. Bronchoscopy Diet: Regular and tolerating Pulm: IS, acapella. Nebs, oxygen weaned to room air. Pain: Tylenol. Percocet. Dilaudid IV. Complains of SKAGGS, will add Fioricet PRN. Activity: OOB. PT and OT evaluating. Mobility improving on a daily basis. Encouraged more OOB mobility. GI: Pepcid Bowel: Colace. MOM. LBM 03/12. DVT: SCD's. Lovenox HTN management: Hydralazine added. Will monitor. Stop IVF. F/U labs and CXR in AM. DC Planning: Case management consulted for assistance with final discharge disposition. Multiple insurance barriers have prevented the patient from discharging to rehab. Patient may be able to progress well enough to just go home with home health care PT in the next few days if the insurance issues have not been resolved. Patient reports he lives with his 2 sons and does not have any stairs in his home. Plan of care discussed with patient and RN at bedside. Attending Statement patient seen at bedside improving Attestation The exam, history, and the medical decision-making described in the above note were completed with the assistance of the mid-level provider. I reviewed and agree with the findings presented. I attest that I had a [id number] encounter with the patient on the same day, and personally performed and documented my assessment and findings in the medical record. Problem Qualifiers (1) Acute respiratory failure: Qualified Code: J96.01 - Acute respiratory failure with hypoxia Janet Jackson Mar 12, 2016 13:04 Eloy Sher MD Mar 21, 2016 21:29
[2016-03-12] MEDS: hydrALAZINE HCL 25 MG TAB PO SCH ×2 (14:08→22:00)
[2016-03-12] MEDS: MAGNESIUM HYDROXIDE SUSP 30 ML CUP PO SCH (20:28)
[2016-03-12] MEDS: oxyCODONE/ACETAMINOPHEN 5 MG/325 MG TAB PO PRN (20:31)
[2016-03-13] VITALS: BP_SYST 106; BP_SYST 152; BP_DIAS 75; BP_DIAS 84; PULSE 82; PULSE 99; RESP 21; TEMP 96.8; TEMP 98.6; O2SAT 92; O2SAT 96
[2016-03-13 04:00] VITALS: BP 159/96; PULSE 84; RESP 19; TEMP 97.8; O2SAT 93
[2016-03-13] MEDS: hydrALAZINE HCL 25 MG TAB PO SCH (05:16)
[2016-03-13 05:26] LABS: HEMATOCRIT 38.6 % (39.0-51.0); MEAN CELL VOLUME 89.8 FL (80.0-100.0); MEAN CORPUSCULAR HEMOGLOBIN 31.1 PG (27.0-34.0); MEAN CORPUSCULAR HGB CONC 34.6 % (32.0-36.0); PLATELET COUNT 690 TH/MM3 (150-450); RED CELL DISTRIBUTION WIDTH 15.5 % (11.6-17.2); REVIEW FLAG FINAL; WHITE BLOOD COUNT 10.5 TH/MM3 (4.0-11.0)
[2016-03-13 05:49] LABS: BICARBONATE 29.5 MEQ/L (21.0-32.0); POTASSIUM 3.5 MEQ/L (3.5-5.1)
--- NOTE | 2016-03-13 07:14 | RADRPT ---
EXAM DATE/TIME: 03/13/2016 06:21 [place] COMPARISON: CT THORAX W/O CONTRAST, March 06, 2016, 10:48. CHEST SINGLE AP, March 06, 2016, 15:16. CHEST SI NGLE AP, March 07, 2016, 5:04. CHEST SINGLE AP, March 09, 2016, 6:00. INDICATIONS : Cough and congestion, evaluate infiltrates MEDICAL HISTORY : None. SURGICAL HISTORY : Splenectomy. ENCOUNTER: Subsequent ACUITY: 1 week PAIN SCORE: 0/10 LOCATION: Bilateral chest FINDINGS: The heart size is within normal limits. There is elevation of the right hemidiaphragm. There some ate lectasis at the right base. The left lung is clear. CONCLUSION: Elevated right hemidiaphragm with right base atelectasis. Sonu Enriquez MD on March 13, 2016 at 7:11 Board Certified Radiologist. This report was verified electronically.
[2016-03-13 08:00] VITALS: BP_SYST 162; BP_DIAS 104; BP_DIAS 113; PULSE 99; RESP 20; TEMP 98.2; O2SAT 93
[2016-03-13] MEDS: METOPROLOL TARTRATE 50 MG TAB PO SCH (08:57)
[2016-03-13] MEDS: DOCUSATE SODIUM 100 MG CAP PO SCH (08:57)
[2016-03-13] MEDS: FAMOTIDINE 20 MG TAB PO SCH (08:57)
[2016-03-13] MEDS: LISINOPRIL 20 MG TAB PO SCH (08:57)
[2016-03-13] MEDS: THIAMINE INJ 100 MG in SODIUM CHLORIDE 0.9% INJ 100 ML IV SCH (08:57)
[2016-03-13] MEDS: SODIUM CHLORIDE 0.9% FLUSH 5 ML FLUSH IV FLUSH SCH (08:58)
[2016-03-13] MEDS: ENOXAPARIN SODIUM 40 MG/0.4 ML SYRINGE SQ SCH (09:48)
[2016-03-13] MEDS ORDERED: hydrALAZINE HCL 50 MG TAB PO SCH ×2 (11:00→14:00)
[2016-03-13] MEDS ORDERED: LISI-515 PO (13:05)
[2016-03-13] MEDS ORDERED: HYDR50TA15 PO (13:05)
[2016-03-13] MEDS ORDERED: DOCU1CAP39 PO (13:05)
[2016-03-13] MEDS ORDERED: METO-309 PO (13:05)
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
== END 2016-03-13 14:49 | disposition home or self-care (01) | DRG 799 ==
LOC: NEPC 23:12 → NEDA 03-04 01:17 → HPAC 03-04 01:44 → N03A 03-04 03:44 → N07B 03-08 15:09
PROVIDERS: ADMIT Surgery Trauma Surgery; ATTEND Surgery Trauma Surgery
PROC: 30233N1 Transfusion of Nonautologous Red Blood Cells into Peripheral Vein, Percutaneous Approach (ICD-10-PCS; 2016-03-03)
PROC: 30233K1 Transfusion of Nonautologous Frozen Plasma into Peripheral Vein, Percutaneous Approach (ICD-10-PCS; 2016-03-04)
PROC: 30233R1 Transfusion of Nonautologous Platelets into Peripheral Vein, Percutaneous Approach (ICD-10-PCS; 2016-03-04)
PROC: 07TP0ZZ Resection of Spleen, Open Approach (ICD-10-PCS; principal; 2016-03-04 01:51)
PROC: 0B9K8ZZ Drainage of Right Lung, Via Natural or Artificial Opening Endoscopic (ICD-10-PCS; 2016-03-06)
PROC: 0W9G0ZZ Drainage of Peritoneal Cavity, Open Approach (ICD-10-PCS; 2016-03-06 12:42)
DX: S36.09XA Other injury of spleen, initial encounter (principal); T79.4XXA Traumatic shock, initial encounter; J96.01 Acute respiratory failure with hypoxia; K66.1 Hemoperitoneum; J98.11 Atelectasis; I10 Essential (primary) hypertension; F10.20 Alcohol dependence, uncomplicated; Z91.19 Patient's noncompliance with other medical treatment and regimen; Z23 Encounter for immunization; V49.40XA Driver injured in collision with unspecified motor vehicles in traffic accident, initial encounter
CPT/HCPCS: 36430; 71010; 71250; 74177; 76937; 80048; 82805; 83690; 83735; 84100; 84132; 84155; 85014; 85018; 85025; 85027; 85610; 85730; 86850; 86900; 86901; 86920; 86927; 88305; 90732; 90734; 93005; 94002; 94003; 94150; 94640; 94664; 94667; 94668; 96374; J0171; J0330; J0461; J0690; J1170; J1650; J1940; J2060; J2250; J2270; J2370; J2405; J2543; J3010; J3411; J3480; J7030; J7050; J7120; P9016; P9017; P9035; Q9967